=== PATIENT | male | born 1980 | race Caucasian/White ===

== ENCOUNTER 2017-07-27 21:54 | Emergency (ER) | payer SELFPAY ==
[~2017-07-27] VITALS: Ht 198.1 cm; Wt 175.0 kg
[2017-07-27 21:57] VITALS: BP 173/81; PULSE 96; RESP 16; TEMP 97.6; O2SAT 96
[2017-07-27 22:21] VITALS: RESP 20; O2SAT 98
[2017-07-27] MEDS ORDERED: ASPIRIN 81 MG CHEW TAB PO ONE (22:30)
[2017-07-27] MEDS ORDERED: SODIUM CHLORIDE 0.9% FLUSH 10 ML FLUSH IVF PRN (22:30)
--- NOTE | 2017-07-27 22:44 | RADRPT ---
EXAM DATE/TIME: 07/27/2017 22:26 [place] COMPARISON: No previous studies available for comparison. INDICATIONS : Chest pain and shortness of breath. MEDICAL HISTORY : None. SURGICAL HISTORY : None. ENCOUNTER: Initial ACUITY: 1 day PAIN SCORE: 6/10 LOCATION: chest FINDINGS: Portable AP view of the chest demonstrates a normal-sized cardiac silhouette. No effusion, consolidat ion, or pneumothorax is visualized. The bones and soft tissues demonstrate no acute abnormality. CONCLUSION: No acute cardiopulmonary abnormality is identified. Murray Barragan MD on July 27, 2017 at 22:42 Board Certified Radiologist. This report was verified electronically.
[2017-07-27 22:45] LABS: AUTOMATED NEUTROPHIL # 7.4 TH/MM3 (1.8-7.7); BASOPHIL # 0.1 TH/MM3 (0-0.2); BASOPHIL % 0.9 % (0.0-2.0); EOSINOPHIL # 0.1 TH/MM3 (0-0.4); EOSINOPHIL % 0.6 % (0.0-4.0); HEMOGLOBIN 14.5 GM/DL (13.0-17.0); LYMPH % 28.9 % (9.0-44.0); LYMPHOCYTE # 3.4 TH/MM3 (1.0-4.8); MEAN CELL VOLUME 85.3 FL (80.0-100.0); MEAN CORPUSCULAR HEMOGLOBIN 29.4 PG (27.0-34.0); MEAN CORPUSCULAR HGB CONC 34.4 % (32.0-36.0); MEAN PLATELET VOLUME 9.7 FL (7.0-11.0); MONO % 6.7 % (0.0-8.0); MONOCYTE # 0.8 TH/MM3 (0-0.9); NEUT % 62.9 % (16.0-70.0); PLATELET COUNT 213 TH/MM3 (150-450); RED BLOOD COUNT 4.92 MIL/MM3 (4.50-5.90); RED CELL DISTRIBUTION WIDTH 13.3 % (11.6-17.2); WHITE BLOOD COUNT 11.8 TH/MM3 (4.0-11.0)
[2017-07-27] MEDS ORDERED: LORazepam 2 MG/ML VIAL IV PUSH ONE (22:45)
--- NOTE | 2017-07-27 22:55 | PD ---
HPI . Chest pain or shortness of breath Chief Complaint: Chest Pain Time Seen by Provider: 22:17 Travel History International Travel<30 days: No Contact w/Intl Traveler<30days: No Traveled to known affect area: No History of Present Illness HPI This patient presents with a chief complaint of chest pain and shortness of breath. Onset was 3-4 days ago. Symptoms come and go. He reports that his symptoms tend to occur with activity. He does not know what makes the symptoms better. He states that he is also feeling very anxious. He describes his chest discomfort as a pressure-like sensation which she rates 5/10. PFSH Past Medical History Thyroid Disease: Yes (HYPO) Tetanus Vaccination: < 5 Years Influenza Vaccination: No Past Surgical History Other Surgery: Yes (VASTECTOMY) Social History Alcohol Use: No Tobacco Use: Yes Substance Use: No Allergies-Medications (Allergen,Severity, Reaction): Coded Allergies: fluoxetine (Verified Allergy, Unknown, RASH, 07/27/17) tramadol (Verified Allergy, Unknown, STOMACH CRAMPING, 07/27/17) Reported Meds & Prescriptions Reported Meds & Active Scripts Active No Active Prescriptions or Reported Medications Review of Systems Except as stated in HPI: all other systems reviewed are Neg Cardiovascular: Positive: Chest Pain or Discomfort Respiratory: Positive: Shortness of Breath Psychiatric: Positive: Anxiety Physical Exam Narrative GENERAL: Awake and alert and in no acute distress. SKIN: warm/dry. Numerous tattoos. Normal color and turgor. HEAD: Normocephalic. Atraumatic. EYES: Pupils equal and round. No scleral icterus. No injection or drainage. ENT: No nasal bleeding or discharge. Mucous membranes pink and moist. NECK: Trachea midline. Full range of motion without pain.. CARDIOVASCULAR: Regular rate and rhythm. Heart sounds normal. RESPIRATORY: No accessory muscle use. Clear to auscultation. Breath sounds equal bilaterally. GASTROINTESTINAL: Abdomen soft. Nontender. Bowel sounds present. Nondistended. MUSCULOSKELETAL: No obvious deformities. No edema. NEUROLOGICAL: Awake and alert. No obvious cranial nerve deficits. Motor grossly within normal limits. Normal speech. PSYCHIATRIC: Appropriate mood and affect; insight and judgment normal. Data Data Last Documented VS Vital Signs Date Time Temp Pulse Resp B/P (MAP) Pulse Ox O2 Delivery O2 Flow Rate FiO2 07/27/17 22:21 20 98 Room Air 07/27/17 21:57 97.6 96 Orders Orders Electrocardiogram (07/27/17 22:17) Basic Metabolic Panel (Bmp) (07/27/17 22:17) Complete Blood Count With Diff (07/27/17 22:17) Troponin I (07/27/17 22:17) Chest, Single Ap (07/27/17 22:17) Ecg Monitoring (07/27/17 22:17) Iv Access Insert/Monitor (07/27/17 22:17) Oximetry (07/27/17 22:17) Aspirin Chew (Aspirin Chew) (07/27/17 22:30) Sodium Chloride 0.9% Flush (Ns Flush) (07/27/17 22:30) Lorazepam Inj (Ativan Inj) (07/27/17 22:45) Labs Laboratory Tests Test 07/27/17 22:24 White Blood Count 11.8 TH/MM3 Red Blood Count 4.92 MIL/MM3 Hemoglobin 14.5 GM/DL Hematocrit 42.0 % Mean Corpuscular Volume 85.3 FL Mean Corpuscular Hemoglobin 29.4 PG Mean Corpuscular Hemoglobin Concent 34.4 % Red Cell Distribution Width 13.3 % Platelet Count 213 TH/MM3 Mean Platelet Volume 9.7 FL Neutrophils (%) (Auto) 62.9 % Lymphocytes (%) (Auto) 28.9 % Monocytes (%) (Auto) 6.7 % Eosinophils (%) (Auto) 0.6 % Basophils (%) (Auto) 0.9 % Neutrophils # (Auto) 7.4 TH/MM3 Lymphocytes # (Auto) 3.4 TH/MM3 Monocytes # (Auto) 0.8 TH/MM3 Eosinophils # (Auto) 0.1 TH/MM3 Basophils # (Auto) 0.1 TH/MM3 CBC Comment DIFF FINAL Differential Comment Blood Urea Nitrogen 18 MG/DL Creatinine 1.32 MG/DL Random Glucose 103 MG/DL Calcium Level 8.2 MG/DL Sodium Level 141 MEQ/L Potassium Level 3.9 MEQ/L Chloride Level 106 MEQ/L Carbon Dioxide Level 28.3 MEQ/L Anion Gap 7 MEQ/L Estimat Glomerular Filtration Rate 61 ML/MIN Troponin I LESS THAN 0.02 NG/ML MDM Medical Decision Making Medical Screen Exam Complete: Yes Emergency Medical Condition: Yes Interpretation(s) EKG shows a normal sinus rhythm with no acute ischemic changes. Differential Diagnosis Differential diagnosis of chest pain includes but is not limited to musculoskeletal pain, pulmonary embolism, acute coronary syndrome, pneumonia, pleurisy Narrative Course This patient presents with the chief complaint of chest pain and shortness of breath. He has been given an aspirin. He looks anxious and will be given Ativan. Cardiac workup has been initiated. I anticipate admission to the chest pain center. CBC & BMP Diagram 07/27/17 22:24 Calcium Level 8.2 L trop < 0.02 CXR>>No acute cardiopulmonary abnormality is identified. The patient reports that he is feeling better following Ativan. He further reports that he just lost his job 2 days ago. He feels that his symptoms are secondary to anxiety. I have offered him admission to the chest pain center but he declines. Diagnosis Primary Impression: Chest pain Qualified Codes: R07.9 - Chest pain, unspecified Additional Impressions: Shortness of breath Anxiety Referrals: [facility] Patient Instructions: Anxiety (DC), General Instructions Scripts No Active Prescriptions or Reported Meds Disposition: 01 DISCHARGE HOME Condition: Stable Steph Lafleur MD Jul 27, 2017 22:55
[2017-07-27 22:57] LABS: TROPONIN I LESS THAN 0.02 NG/ML (0.02-0.05)
[2017-07-27 22:59] LABS: BICARBONATE 28.3 MEQ/L (21.0-32.0); BLOOD UREA NITROGEN 18 MG/DL (7-18); CALCIUM 8.2 MG/DL (8.5-10.1); CHLORIDE 106 MEQ/L (98-107); CREATININE 1.32 MG/DL (0.60-1.30); GLOMERULAR FILTRATION RATE 61 ML/MIN (>89); GLUCOSE,RANDOM 103 MG/DL (74-106); SODIUM (NA) 141 MEQ/L (136-145)
--- NOTE | 2017-07-28 14:39 | EKG ---
Date Performed: 07/27/2017 Time Performed: 22:24:27 PTAGE: 37 years EKG: Sinus rhythm INDETERMINATE AXIS PATTERN CONSISTENT WITH PULMONARY DISEASE ABNORMAL ECG NO PREVIOUS TRACING DOCTOR: Shane Dawn Interpretating Date/Time 07/28/2017 14:37:22
== END 2017-07-27 23:31 | disposition home or self-care (01) ==
LOC: NEPE 21:54
DX: R07.9 Chest pain, unspecified (principal); R06.02 Shortness of breath; F41.9 Anxiety disorder, unspecified; R94.31 Abnormal electrocardiogram [ECG] [EKG]; E03.9 Hypothyroidism, unspecified; Z72.0 Tobacco use; Z88.5 Allergy status to narcotic agent; Z88.8 Allergy status to other drugs, medicaments and biological substances
CPT/HCPCS: 71045; 80048; 84484; 85025; 93005; 96374; 99285; J2060